=== PATIENT | male | born 1980 | race Caucasian/White ===

== ENCOUNTER 2025-07-02 07:36 | Outpatient (CLI) | payer BC | END 2025-07-02 07:37 | disposition home or self-care (01) | LOC: MRI 07:36 | PROVIDERS: ATTEND Family Medicine | DX: M47.26 Other spondylosis with radiculopathy, lumbar region (principal); M51.16 Intervertebral disc disorders with radiculopathy, lumbar region; N28.1 Cyst of kidney, acquired; M50.121 Cervical disc disorder at C4-C5 level with radiculopathy; M50.122 Cervical disc disorder at C5-C6 level with radiculopathy; M50.123 Cervical disc disorder at C6-C7 level with radiculopathy | CPT/HCPCS: 72110; 72141; 72148 ==

== ENCOUNTER 2025-07-11 08:40 | Outpatient (CLI) | payer BC | END 2025-07-11 08:41 | disposition home or self-care (01) | LOC: MRI 08:40 | PROVIDERS: ATTEND Physician Assistant | DX: M75.111 Incomplete rotator cuff tear or rupture of right shoulder, not specified as traumatic (principal); M75.112 Incomplete rotator cuff tear or rupture of left shoulder, not specified as traumatic; M19.011 Primary osteoarthritis, right shoulder; M19.012 Primary osteoarthritis, left shoulder ==